=== PATIENT | female | born 1995 | race Two or more races ===

== ENCOUNTER 2024-07-17 16:04 | Emergency (ER) | payer OTHER ==
[~2024-07-17] VITALS: Ht 180.3 cm; Wt 83.9 kg
[2024-07-17 18:59] LABS: HEMATOCRIT 33.4 % (36.0-45.00); HEMOGLOBIN 11.2 g/dL (12.0-15.00); MEAN CELL VOLUME 82.7 fL (80.00-100.00); MEAN CORPUSCULAR HEMOGLOBIN 27.8 pg (27.00-32.0); MEAN CORPUSCULAR HGB CONC 33.6 g/dl (32.0-36.0); PLATELET COUNT 342 K/uL (150-450); RED BLOOD COUNT 4.04 M/uL (4.00-6.00); RED CELL DISTRIBUTION WIDTH 15.5 % (11.5-14.5)
[2024-07-17 19:29] LABS: CREATININE SERUM 0.73 mg/dL (0.55-1.02); GFR 92.99; POTASSIUM 4.07 mEq/L (3.5-5.1)
== END 2024-07-17 20:34 | disposition home or self-care (01) ==
LOC: ER 16:06
PROVIDERS: General Practice
DX: R42 Dizziness and giddiness (principal)